=== PATIENT | male | born 1985 | race Caucasian/White ===

== ENCOUNTER → 2017-02-08 | Outpatient (CLI) | payer BC ==
--- NOTE | 2017-02-09 15:09 | US ---
EXAM DATE: 02/08/17 PATIENT'S AGE: 31 Patient: MARITO ARROYO Facility: [place], [place] Site . Site : 1985 Study: US Testicle [id number]/25/2017 4:08:19 PM Ordering Physician: Tammy Hill Final Report: INDICATION: Recurrent TECHNIQUE: Ultrasound of the scrotum and contents. Sonographic freeman scale images were obtained with spectral and color Doppler waveform and spectral waveform analysis of the testicles. COMPARISON: None FINDINGS: Right testicle: 3.5 centimeters x 4.0 centimeters x 2.1 centimeter. Normal echotexture. No masses. No suspicious calcifications. Normal arterial and venous and blood flow using Doppler and spectral waveform analysis. Left testicle: 4.7 centimeter x 3.0 centimeter x 2.4 centimeter. Normal echotexture. No masses. No suspicious calcifications. Normal arterial and venous and blood flow using Doppler and spectral waveform analysis. Epididymis: Unremarkable bilaterally. Normal blood flow. Other: Small left hydrocele. No sign of varicocele. Scrotal wall is normal. IMPRESSION: Small left hydrocele. Sonographically normal testicles and epididymi. Dictated by Gliberto Canales MD @ Feb 09 2017 11:33AM (Electronic Signature) Report Signed by Proxy and Original Signed Document filed in the Medical Record. SOPHIE
--- NOTE | 2017-02-09 15:09 | US ---
EXAM DATE: 02/08/17 PATIENT'S AGE: 31 Patient: MARITO ARROYO Facility: [place], [place] Site . Site : 1985 Study: US Testicle [id number]/25/2017 4:08:19 PM Ordering Physician: Tammy Hill Final Report: INDICATION: Recurrent TECHNIQUE: Ultrasound of the scrotum and contents. Sonographic freeman scale images were obtained with spectral and color Doppler waveform and spectral waveform analysis of the testicles. COMPARISON: None FINDINGS: Right testicle: 3.5 centimeters x 4.0 centimeters x 2.1 centimeter. Normal echotexture. No masses. No suspicious calcifications. Normal arterial and venous and blood flow using Doppler and spectral waveform analysis. Left testicle: 4.7 centimeter x 3.0 centimeter x 2.4 centimeter. Normal echotexture. No masses. No suspicious calcifications. Normal arterial and venous and blood flow using Doppler and spectral waveform analysis. Epididymis: Unremarkable bilaterally. Normal blood flow. Other: Small left hydrocele. No sign of varicocele. Scrotal wall is normal. IMPRESSION: Small left hydrocele. Sonographically normal testicles and epididymi. Dictated by Gilberto Canales MD @ Feb 09 2017 11:33AM (Electronic Signature) Report Signed by Proxy and Original Signed Document filed in the Medical Record. SOPHIE
== END ==
LOC: MW.US 15:31
PROVIDERS: ATTEND Internal Medicine
DX: N45.2 Orchitis (principal); N43.3 Hydrocele, unspecified
CPT/HCPCS: 76870; 76870-26; 93976; 93976-26